=== PATIENT | male | born 1960 | race Caucasian/White ===

== ENCOUNTER 2017-09-03 15:55 | Emergency (ER) | payer OTHER ==
[2017-09-03 16:11] VITALS: BP 117/64
--- NOTE | 2017-09-03 16:20 | UC ---
Respiratory Complaint HPI - History of Current Complaint Chief Complaint: UCRespiratory Stated Complaint: CHEST CONGESTION Time Seen by Provider: 09/03/17 16:20 Hx Obtained From: Patient Onset/Duration: Sudden Onset Severity Initially: Moderate Severity Currently: Moderate Pain Scale Used: 0-10 Numeric - 5 Aggravating Factors: Deep Breaths Related History: Seasonal Allergies - Risk Factors Pulmonary Embolism Risk Factors: Negative Pseudomonas Risk Factors: Negative Tuberculosis Risk Factors: Negative - Allergies/Home Medications Allergies/Adverse Reactions: Allergies Allergy/AdvReac Type Severity Reaction Status Date / Time Amoxicillin Allergy Unknown Verified 09/03/17 16:11 Reaction Details Home Medications: Home Medications Ibuprofen [Advil] 400 mg PO 09/03/17 [History] PMH/Surg Hx/FS Hx/Imm Hx Previously Healthy: Yes - Surgical History Surgical History: Yes Surgery Procedure, Year, and Place: CHOLECYSTECTOMY - Family History Known Family History: Negative: Diabetes - Social History Alcohol Use: Occasionally Substance Use Type: None Smoking Status (MU): Never Smoked Tobacco Review of Systems Constitutional: Negative Skin: Negative Eyes: Negative ENT: Negative Respiratory: Negative Cardiovascular: Chest Pain Gastrointestinal: Negative Genitourinary: Negative Motor: Negative Neurovascular: Negative Musculoskeletal: Negative Neurological: Negative Psychological: Negative All Other Systems Reviewed And Are Negative: Yes Physical Exam Triage Information Reviewed: Yes Vital Signs: Initial Vital Signs Temp 36.2 C 09/03/17 16:07 Pulse 65 09/03/17 16:07 Resp 18 09/03/17 16:07 BP 117/64 09/03/17 16:07 Pulse Ox 99 09/03/17 16:07 Vital Signs Reviewed: Yes Eye Exam: Normal ENT Exam: Normal Dental Exam: Normal Neck exam: Normal Neck: Positive: 1 Respiratory Exam: Normal Cardiovascular: Positive: Bradycardia Abdominal Exam: Normal Musculoskeletal Exam: Normal Neurological Exam: Normal Psychological Exam: Normal Skin Exam: Normal UC Diagnostic Evaluation - Laboratory O2 Sat by Pulse Oximetry: 99 Respiratory Course/Dx - Differential Dx/Diagnosis Provider Diagnoses: chest pain/heaviness Discharge - Discharge Plan Condition: Stable Disposition: OTHER Discharge Disposition Comment: patient suggested to go to the er Referrals: Trevon Padilla MD [Primary Care Provider] - Additional Instructions: patient suggested to go to the er for bradycardia
--- NOTE | 2017-09-03 17:13 | RAD ---
INDICATION: Cough. COMPARISON: Comparison is made with a prior study from December 01, 2005. TECHNIQUE: Dual-energy PA and lateral views of the chest were obtained. FINDINGS: The heart is within normal limits in size. Mediastinal and hilar contours appear within normal limits. The lungs are hyperinflated and clear. No pleural effusion is seen. IMPRESSION: NO EVIDENCE FOR ACTIVE CARDIOPULMONARY DISEASE.
[2017-09-03] MEDS ORDERED: Aspirin Low Dose CHEW TAB* 81 MG PO ONE (17:19)
== END 2017-09-03 17:34 ==
LOC: UCEAST 15:55
DX: R07.89 Other chest pain (principal)
CPT/HCPCS: 71020; 81003; 93005; 99212; A9270-GY; G0463

== ENCOUNTER 2017-09-03 17:50 | Emergency (ER) | payer OTHER ==
[2017-09-03] MEDS ORDERED: Aspirin Low Dose CHEW TAB* 81 MG PO ONE (21:09)
[2017-09-03 21:40] LABS: ABS Basophils 0.1 10^3/ul (0-0.2); ABS Eosinophils 0.3 10^3/ul (0-0.6); ABS Lymphocytes 1.9 10^3/ul (1.0-4.8); ABS Monocytes 0.5 10^3/ul (0-0.8); ABS Neutrophils 2.7 10^3/ul (1.5-7.7); ABS Nucleated RBC 0 10^3/ul; Hematocrit 42 % (42-52); Hemoglobin 14.5 g/dl (14.0-18.0); Lymphocyte % 35.3 % (25-47); Mean Corpuscular HGB Conc 34 g/dl (31-36); Mean Corpuscular Hemoglobin 31 pg (27-31); Mean Corpuscular Volume 91 fL (80-94); Mean Platelet Volume 9 um3 (7.4-10.4); Nucleated Red Blood Cells % 0; Platelet Count 193 10^3/ul (150-450); Red Blood Count 4.65 10^6/ul (4.0-5.4); Red Cell Distribution Width 13 % (10.5-15); White Blood Count 5.5 10^3/ul (3.5-10.8)
[2017-09-03 21:51] LABS: INR 0.88 (0.77-1.02)
[2017-09-03 21:52] LABS: EGFR Non-African American 79.4 (>60)
--- NOTE | 2017-09-03 22:10 | ED ---
Rudolph García Tecjoon, scribed for Molly Garcia MD on 09/03/17 at 2102 . HPI Chest Pain - HPI Summary HPI Summary: This patient is a 56 year old male presenting to [facility] with a chief complaint of chest pain/tenderness since 2 days ago. Pt states he came down with a cold last week and the chest pain emerged gradually. The pain is rated 4/10 in severity. It does not radiate and is constant. Symptoms aggravated by movement. Symptoms alleviated by nothing. Patient additionally reports a cold, stuffy nose. Patient denies cough, fever, chills. Patient denies a Hx of pneumonia or bronchitis. - History of Current Complaint Chief Complaint: EDChestPainROMI Time Seen by Provider: 09/03/17 20:46 Hx Obtained From: Patient Onset/Duration: Started Days Ago - 2, Still Present Timing: Constant Current Severity: Mild Pain Intensity: 4 Pain Scale Used: 0-10 Numeric Chest Pain Location: Diffuse Chest Pain Radiates: No Aggravating Factor(s): Movement Alleviating Factor(s): Nothing Associated Signs and Symptoms: Positive: Negative - cough, fever, chills, Other : - "a cold", stuffy nose - Allergy/Home Medications Allergies/Adverse Reactions: Allergies Allergy/AdvReac Type Severity Reaction Status Date / Time Amoxicillin Allergy Unknown Verified 09/03/17 16:11 Reaction Details PMH/Surg Hx/FS Hx/Imm Hx Previously Healthy: No Endocrine/Hematology History: Denies: Hx Diabetes, Hx Thyroid Disease Cardiovascular History: Denies: Hx Hypertension Comment Only: Other Cardiovascular Problems/Disorders - PT STATES HOLE IN HEART FOUND 97 STROKE LIKE SYPM Respiratory History: Denies: Hx Asthma, Hx Chronic Bronchitis, Hx Chronic Obstructive Pulmonary Disease (COPD), Hx Pneumonia GI History: Denies: Hx Ulcer History: Reports: Hx Kidney Stones, Hx Renal Disease - Surgical History Surgery Procedure, Year, and Place: CHOLECYSTECTOMY Infectious Disease History: No Infectious Disease History: Denies: Hx Hepatitis, Hx Human Immunodeficiency Virus (HIV), Traveled Outside the [place] in Last 30 Days - Family History Known Family History: Negative: Diabetes - Social History Alcohol Use: Occasionally Hx Substance Use: No Substance Use Type: Reports: None Hx Tobacco Use: No Smoking Status (MU): Never Smoked Tobacco Review of Systems Positive: Other - "a cold". Negative: Fever, Chills Positive: Other - nose congestion Positive: Chest Pain Negative: Cough All Other Systems Reviewed And Are Negative: Yes Physical Exam - Summary Physical Exam Summary: VITAL SIGNS: Reviewed. GENERAL: Patient is a well-developed and nourished male who is lying comfortable in the stretcher. Patient is not in any acute respiratory distress. HEAD AND FACE: No signs of trauma. No ecchymosis, hematomas or skull depressions. No sinus tenderness. EYES: PERRLA, EOMI x 2, No injected conjunctiva, no nystagmus. EARS: Hearing grossly intact. Ear canals and tympanic membranes are within normal limits. MOUTH: Oropharynx within normal limits. NECK: Supple, trachea is midline, no adenopathy, no JVD, no carotid bruit, no c- spine tenderness, neck with full ROM. CHEST: Symmetric, no tenderness at palpation LUNGS: Clear to auscultation bilaterally. No wheezing or crackles. CVS: Regular rate and rhythm, S1 and S2 present, no murmurs or gallops appreciated. ABDOMEN: Soft, non-tender. No signs of distention. No rebound no guarding, and no masses palpated. Bowel sounds are normal. EXTREMITIES: FROM in all major joints, no edema, no cyanosis or clubbing. NEURO: Alert and oriented x 3. No acute neurological deficits. Speech is normal and follows commands. SKIN: Dry and warm Triage Information Reviewed: Yes Vital Signs On Initial Exam: Initial Vitals Temp Pulse Resp BP Pulse Ox 96.9 F 55 18 126/78 100 09/03/17 18:01 09/03/17 18:01 09/03/17 18:01 09/03/17 18:01 09/03/17 18:01 Vital Signs Reviewed: Yes Diagnostics - Vital Signs Vital Signs Temp Pulse Resp BP Pulse Ox 09/03/17 19:55 97.1 F 58 16 123/69 99 09/03/17 18:01 96.9 F 55 18 126/78 100 - Laboratory Result Diagrams: 09/03/17 21:16 09/03/17 21:16 Lab Statement: Any lab studies that have been ordered have been reviewed, and results considered in the medical decision making process. - EKG 1808 Cardiac Rate: Bradycardia EKG Rhythm: Sinus Bradycardia - 52 BPM EKG Interpretation: Sinus Bradycardia(52 BPM). Normal axis. Normal intervals. J- point elevation Chest Pain Course/Dx - Course Course Of Treatment: This patient is a 56 year old male presenting to [facility] with a chief complaint of chest pain/tenderness since 2 days ago. Pt states he came down with a cold last week and the chest pain emerged gradually. The pain is rated 4/10 in severity. It does not radiate and is constant. Patient present normal EKG, Normal Labs. Pain is positional. Given patients age and sex, we recommend a stress test as outpatient. - Diagnoses Provider Diagnoses: Atypical chest pain, Chest wall pain Discharge - Discharge Plan Condition: Fair Disposition: HOME Patient Education Materials: Chest Wall Pain (ED) Referrals: Trevon Padilla MD [Primary Care Provider] - 3 Days Additional Instructions: Patient will be discharged for chest wall pain with recommendation for OTC pain medication and follow up with PCP in 3 days. We highly recommend a stress test as outpatient. The patient is agreeable with this plan. RETURN TO EMERGENCY DEPARTMENT FOR ANY NEW OR WORSENING SYMPTOMS The documentation as recorded by the Rudolph bernal Tecjoon accurately reflects the service I personally performed and the decisions made by Radha arevalo Abdul, MD.
[2017-09-03 22:12] VITALS: BP 120/64
== END 2017-09-03 22:15 | disposition home or self-care (01) ==
LOC: ED 17:50
DX: R07.89 Other chest pain (principal); Z88.0 Allergy status to penicillin
CPT/HCPCS: 36415; 80053; 82550; 84484; 85025; 85610; 85730; 86140; 93005; 99283; A9270-GY